=== PATIENT | female | born 1950 | race Caucasian/White ===

== ENCOUNTER 2024-02-19 01:30 | Outpatient (CLI) | payer MEDICARE, OTHER, SELFPAY | END 2024-02-19 01:31 | disposition home or self-care (01) | PROVIDERS: Visit Provider Family Medicine | DX: R06.09 Other forms of dyspnea (principal) | CPT/HCPCS: A0425; A0427 ==

== ENCOUNTER 2024-02-19 02:00 | Emergency (ER) | payer MEDICARE, OTHER, SELFPAY ==
[2024-02-19 02:04] VITALS: BP 144/61; PULSE 70; RESP 16; TEMP 36.4; O2SAT 94; BMI 36.6
--- NOTE | 2024-02-19 08:08 | ED_ITS ---
HPI - General Adult General Chief complaint: Unspecified Complaint, Adult Stated complaint: Swelling in throat Source: patient Mode of arrival: ambulatory Limitations: no limitations History of Present Illness HPI narrative: 73-year-old female comes in with her via EMS because of now resolved feeling of dry throat. Patient's reports that she has cognitive dysfunction, describes what sounds like vascular dementia. It sounds as though she is on Aricept and Namenda for her cognitive issues. She awoke overnight with some distress stating that she could not swallow. It sounds as though her mouth was very dry. She had a hard time remembering what to do and started getting very anxious. She was disoriented because they are visiting from [place] and she is staying in her son's home. She did not immediately recognized her surroundings and this seemed to cause her a little more distress. EMS was called. She reported feeling much better even by the time they arrived. She got some water and after drinking started to calm down and feel more settled. Her throat tightness result. There was never any real respiratory distress. She and her both admit that they may have ?jumped the gun? a little bit. There under tremendous stress right now. admits that he is struggling with the patient's cognitive dysfunction and memory loss as well as managing all of her medical appointments. They are here visiting their son who is unfortunately dying of cancer in his 40s. They have a 7-year-old grandson who is their only grandchild. Their son has fought a long hayes with his cancer but now has a life expectancy of all the a few weeks. This has been very distressing to them. They know that it is difficult on his son and the family for them to visit as well but they want nothing more than to be with their son for his last few weeks. The patient is not having fevers, there has been no dysuria. Her appetite has been good. There has been no vomiting or diarrhea. She and her both seem to have a mild upper respiratory type infection but no severe respiratory distress, productive cough, mouth ulcerations or other abnormality. There have been no really new medications. They follow with neurology regarding those cognitive medications. They have an upcoming neuropsych consult next Tuesday and several pending appointments for his as well. Past medical history is notable for diabetes, hypertension as well as this new or diagnosis of cognitive dysfunction. They were able to list all of her medications for me notable for venlafaxine, glipizide, lisinopril, a tore the statin, metoprolol several vitamin supplements Namenda Actos Aricept and 50 units of Lantus daily. They are nonsmokers, visiting from [place]. Has been seems to be very good at helping manage his 's cognitive impairment and also her medications. Per patient ROS is completely negative times 12 systems. Per , notable for the mild upper airway congestion as described above as well as the throat episode which resolved within a few minutes. Related Data Home Medications ?Medication ?Instructions ?Recorded ?Confirmed No Known Home Medications 02/19/24 02/19/24 Allergies Allergy/AdvReac Type Severity Reaction Status Date / Time No Known Drug Allergies Allergy Verified 02/19/24 04:19 [facility] Social History Do you use any of these nicotine containing products: None How often do you have a drink containing alcohol: never AUDIT-C Alcohol total score: 0 Non-prescribed substance use: denies use Exam Const: Vital Signs, click to edit/add: Vital Signs - 24 hr 02/19/24 02:04 Temperature 97.6 F Pulse Rate [Pulse Oximeter] 70 Respiratory Rate 16 Blood Pressure [Ri ght Upper Arm] 144/61 H Pulse Oximetry 94 Oxygen Delivery Me thod Room Air Documenting provider has reviewed patient's vital signs: yes Common normals: no apparent distress and alert General appearance: cooperative, comfortable and well kempt Other: Mild to moderate cognitive impairment but friendly with no agitation. HENMT: Common normals: normocephalic and oropharynx normal Head and scalp: normocephalic Face and sinus: normal facial exam Other: Mild clear mucus rhinorrhea with clear mucus postnasal drip. Slight blistery stomatitis, viral appearing. Eye: Common normals: conjunctivae normal General eye: normal appearance of both eyes Conjunctiva: conjunctiva(e) normal Neck & C-Spine: Common normals: full ROM and no lymphadenopathy Resp: Common normals: normal respiratory effort, no use of accessory muscles and clear to auscultation bilaterally Effort & inspection: able to speak in complete sentences Auscultation: clear to auscultation bilaterally Cardio: Common normals: regular rate, regular rhythm, S1 normal heart sound, S2 normal heart sound and no murmurs Rate: regular rate Rhythm: regular rhythm Heart sounds: S1 normal and S2 normal GI: Common normals: Normal to inspection, nondistended, normoactive bowel sounds present, soft to palpation, non-tender, no hepatosplenomegaly and no masses Palpation: soft and no hepatosplenomegaly Extremity: Common normals: normal to inspection and normal capillary refill Neuro: Common normals: moves all extremities and no focal motor deficits Sensorium/orientation: alert Speech: speech normal Motor exam: no movement abnormalities noted Psych: Appearance: well kempt Mood and affect: euthymic mood Insight: fa ir Judgement: fair Skin: Common normals: no rashes or lesions noted General skin exam: no ra shes or lesions noted Course Course ED Course: 73-year-old female with some mild chronic cognitive impairment presenting with mild URI and sensation of dry sticky throat that cause some distress overnight and resolved prior to presentation. I think that her presentation really is multifactorial. I think that her cognitive impairment and being in an unfamiliar environment cause some disorientation which did cause her some distress. Of course this cleared once she was redirected by her family. Drinking water helps with the dry throat. They are under tremendous distress due to their son's illness and the recent poor prognosis. There are no signs of hypoglycemia, vital sign instability or abnormalities that are dangerous on physical exam today. Discussed my rationale on not doing a more thorough workup, patient and are comfortable with this and are comfortable with discharging back home. We discussed alarm symptoms that would warrant ED Follow-up. Emotional support given. Vital Signs Vital signs: Initial Vital Signs Temperature 97.6 F 02/19/24 02:04 Temperature Source Temporal Artery Scan 02/19/24 02:04 Pulse Rate 70 02/19/24 02:04 Respiratory Rate 16 02/19/24 02:04 Blood Pressure 144/61 H 02/19/24 02:04 Blood Pressure Mean 88 02/19/24 02:04 Blood Pressure Position Supine 02/19/24 02:04 Pulse Oximetry 94 02/19/24 02:04 Oxygen Delivery Method Room Air 02/19/24 02:04 Vital Signs Temperature 97.6 F 02/19/24 02:04 Pulse Rate 70 02/19/24 02:04 Respiratory Rate 16 02/19/24 02:04 Blood Pressure 144/61 H 02/19/24 02:04 Pulse Oximetry 94 02/19/24 02:04 Oxygen Delivery Method Room Air 02/19/24 02:04 Temperature 97.6 F 02/19/24 02:04 Pulse Rate 70 02/19/24 02:04 Respiratory Rate 16 02/19/24 02:04 Blood Pressure 144/61 H 02/19/24 02:04 Pulse Oximetry 94 02/19/24 02:04 Oxygen Delivery Method Room Air 02/19/24 02:04 Discharge Plan Discharge Clinical Impression: Throat dryness Patient Disposition: Home w/ Parent or Adult Condition: Improved Additional Instructions: Discharge instruction on Kareen bowels: Our computer systems are currently down due to monthly maintenance until 4:30 a.m..? Hence, the unusual appearance of these discharge instructions. I agree with you that you do seem to be coming down with a mild respiratory virus but there are no signs of any severe respiratory distress.? Your lungs sound nice and clear.? I think that you had an episode of dryness in the throat that caused things to stick together which can be a very scary feeling.? Your memory medications make this even more likely to happen.? Your oxygen levels and vital signs all look very good.? I do not see any signs of an allergic reaction, swelling, ulcerations or other abnormalities in your throat.? Sometimes gastric reflux can be a factor but I do not hear any signs of that in your case today.? I am glad that your symptoms improved so quickly.? I do not see any signs of bacterial infection and do not think that treatment for your mild upper respiratory infection is necessary.? Keep taking your medications as prescribed.? Keep water at the bedside to drink in the middle of the night if you awaken with similar symptoms.? Symptoms should improve within about 2-3 minutes if throat dryness and anxiety caused these symptoms. I am also sorry the that you are going through so much right now.? As discussed, I would consider pushing back nonessential medical appointments for a few months until after the and things settle down for all of you. Please come back to the emergency department if there is any severe respiratory distress, high fevers or worsening of symptoms. Activity Level: No Restrictions Discharge Diet: Diabetic Prescriptions: No Action No Known Home Medications Follow Up/Referrals: Provider,Not a Local [Primary Care Provider] -
== END 2024-02-19 03:50 | disposition home or self-care (01) ==
LOC: ED 03:52
PROVIDERS: Emergency Provider Family Medicine
DX: U07.1 COVID-19 (principal); N39.0 Urinary tract infection, site not specified
CPT/HCPCS: 99283; 99284

== ENCOUNTER 2024-02-20 13:57 | Emergency (ER) | payer MEDICARE, OTHER, SELFPAY ==
[2024-02-20] VITALS (27 sets, daily range): BP systolic 93–133; BP diastolic 52–79; PULSE 56–68; RESP 18; TEMP 37.1; O2SAT 92–99; BMI 38.4
--- NOTE | 2024-02-20 14:17 | CRLHL7_ITS ---
For Patients: As a result of the Century Cures Act, medical imaging exams and procedure reports are released immediately into your electronic medical record. You may view this report before your referring provider. If you have questions, please contact your health care provider. INDICATION: Shortness of breath. TECHNIQUE: PA and lateral chest. FINDINGS: Lungs are clear. Normal heart size and pulmonary vascularity. No pleural effusion. No pneumothorax. Upper abdominal surgical clips. IMPRESSION: No acute chest findings. Dictated by Jose Edmond MD @ 02/22/2024 9:00:49 AM (Electronically Signed)
[2024-02-20] MEDS: 0.9 % SODIUM CHLORIDE 1000 ml 1,000 ML IV (14:40)
[2024-02-20 14:47] LABS: Basophils Absolute Auto 0.01 K/uL (0.00-0.30); Basophils Percent Auto 0.2 % (0.0-3.0); Eosinophils Absolute Auto 0.09 K/uL (0.00-0.50); Eosinophils Percent Auto 1.7 % (0.0-7.0); Hematocrit 36.9 % (33.0-51.0); Hemoglobin* 11.6 gm/dL (12.0-16.0); Lymphocytes Percent Auto 18.4 % (20-44); Mean Corpuscular HGB Conc 31 gm/dL (32-36); Mean Corpuscular Hemoglobin 29 pg (26-34); Mean Corpuscular Volume 92 fL (80-100); Monocytes Percent Auto 17.5 % (0.0-11.0); Neutrophils Absolute Auto 3.31 K/uL (1.7-7.0); Neutrophils Percent Auto 62.2 % (42.0-72.0); Platelet Count* 192 K/uL (140-440); RDW Coefficient of Variation % 15.3 % (11.5-15.5); White Blood Count* 5.32 K/uL (4.50-11.00)
[2024-02-20 14:49] LABS: Slide Review Reflex No
[2024-02-20 14:59] LABS: Chloride* 103 mmol/L (96-114); Sodium* 137 mmol/L (135-149)
[2024-02-20 15:00] LABS: Albumin* 3.8 g/dL (3.3-5.0)
[2024-02-20 15:02] LABS: Anion Gap 2 mEq/L (7-15); Blood Urea Nitrogen* 16 mg/dL (7-30); Carbon Dioxide* 32 mmol/L (20-32); Creatinine* 1.1 mg/dL (0.5-1.5); Estimated Glomerular Filt Rate 53 ml/min
[2024-02-20 15:03] LABS: Alkaline Phosphatase* 76 U/L (40-150); Aspartate Amino Transferase* 27 U/L (12-35); Bilirubin Direct* 0.2 mg/dL (0.0-0.5); Bilirubin Total* 1.5 mg/dL (0.1-1.5); Calcium* 8.7 mg/dL (8.4-10.6); Glucose* 61 mg/dL (60-115); Total Protein* 6.4 g/dL (6.0-8.3)
[2024-02-20 15:04] LABS: Alanine Aminotransferase* 14 U/L (4-35)
--- NOTE | 2024-02-20 15:05 | ED.GENADULT ---
HPI - General Adult General Chief complaint: Hypotension Stated complaint: Low BP Time Seen by Provider: 02/20/24 14:06 Source: patient and family Mode of arrival: ambulatory Limitations: no limitations History of Present Illness HPI narrative: 73-year-old female coming in today complaining of upper respiratory symptoms going on for a couple days. Patient [place] state and is going home tomorrow so she went to the urgent care to get her symptoms checked out earlier today and found her systolic blood pressure was 90. Because of this she was sent to the emergency department for evaluation. Upon arrival blood pressure is 127/79. Patient states she has had a runny nose and mild cough for couple days. She denies fever, changes in her appetite, chest pain or abdominal pain. She has a mild headache. She states that she has had urinary frequency for quite a while, unclear how long that means. She denies urgency or dysuria. She does have a history of urinary incontinence. She denies any diarrhea, no vomiting. Patient denies dizziness, feeling lightheaded, increased confusion, focal neurologic deficits, changes in her speech. has similar symptoms. Past medical history significant for diabetes, hypothyroidism, hypertension, hyperlipidemia, slow cognitive decline. Related Data Home Medications ?Medication ?Instructions ?Recorded ?Confirmed atorvastatin 40 mg tablet 40 mg PO DAILY 02/20/24 02/20/24 donepezil 10 mg tablet 10 mg PO QPM 02/20/24 02/20/24 glipizide 5 mg tablet 5 mg PO BID 02/20/24 02/20/24 insulin glargine 100 unit/mL (3 50 unit subcut DAILY 02/20/24 02/20/24 mL) subcutaneous pen (Lantus Solostar U-100 Insulin) levothyroxine 75 mcg tablet 75 mcg PO DAILY 02/20/24 02/20/24 lisinopril 20 mg tablet 10 - 20 mg PO BID 02/20/24 02/20/24 memantine 10 mg tablet 10 mg PO DAILY 02/20/24 02/20/24 metoprolol tartrate 25 mg tablet 25 mg PO DAILY 02/20/24 02/20/24 pioglitazone 30 mg tablet 30 mg PO DAILY 02/20/24 02/20/24 venlafaxine 37.5 mg tablet 37.5 mg PO DAILY 02/20/24 02/20/24 Previous Rx's ?Medication ?Instructions ?Recorded cephalexin 500 mg capsule 500 mg PO TID 5 days #15 caps 02/20/24 nirmatrelvir 300 mg (150 mg See Rx Instructions PO .COMPLEX 02/20/24 x2)-ritonavir 100 mg tablet,dose #30 ea pack (Paxlovid) Allergies Allergy/AdvReac Type Severity Reaction Status Date / Time No Known Drug Allergies Allergy Verified 02/20/24 14:07 Review of Systems Status of ROS: Reports: 10 or more systems reviewed and unremarkable except as noted in History and below PFSH [facility] Social History Do you use any of these nicotine containing products: None How often do you have a drink containing alcohol: never AUDIT-C Alcohol total score: 0 Non-prescribed substance use: denies use Exam Narrative: Exam Narrative: Well-nourished well-developed patient in no acute distress. Alert and oriented x3. Answers questions appropriately. Mood and affect are appropriate. No tangential or magical thinking noted. Patient speaks in full sentences without needing to catch her breath. Speech is not slurred or pressured. HEENT: Normocephalic atraumatic. Face symmetric. Pupils are equally round reactive to light. Extraocular muscles are intact. Conjunctivae are moist without any icterus noted. Moist mucous membranes. Posterior pharynx is normal. Neck is soft without any lymphadenopathy or thyromegaly. Cardiovascular: Heart is regular rate and rhythm S1 and S2 are present without any murmurs. Lungs: Clear to auscultation bilaterally no wheezes rhonchi or rales are appreciated. Patient takes deep breaths without any discomfort. Abdomen: Soft and nontender nondistended with normal bowel sounds. No guarding or rebound. Extremities: Bilateral lower extremities are without edema. Normal DP and PT pulses. Skin: Well perfused without any obvious rashes. Const: Vital Signs, click to edit/add: Vital Signs - 24 hr 02/20/24 14:07 02/20/24 14:17 02/20/24 14:34 Temperature 98.8 F Pulse Rate 58 L Pulse Rate [Pulse Oximeter] 58 L Respiratory Rate 18 Blood Pressure Blood Pressure [Ri ght Upper Arm] 127/79 Pulse Oximetry 95 94 96 Oxygen Delivery Me thod Room Air 02/20/24 14:36 02/20/24 14:49 02/20/24 15:00 Temperature Pulse Rate 56 L 60 Pulse Rate [Pulse Oximeter] Respiratory Rate Blood Pressure 109/53 L Blood Pressure [Ri ght Upper Arm] Pulse Oximetry 96 97 95 Oxygen Delivery Nd thod 02/20/24 15:01 02/20/24 15:02 02/20/24 15:15 Temperature Pulse Rate 62 61 62 Pulse Rate [Pulse Oximeter] Respiratory Rate Blood Pressure 93/58 L Blood Pressure [Ri ght Upper Arm] Pulse Oximetry 96 95 92 Oxygen Delivery Nd thod 02/20/24 15:20 02/20/24 15:30 02/20/24 15:40 Temperature Pulse Rate 68 Pulse Rate [Pulse Oximeter] Respiratory Rate Blood Pressure Blood Pressure [Ri ght Upper Arm] Pulse Oximetry 93 95 95 Oxygen Delivery Nd thod 02/20/24 15:45 02/20/24 16:00 02/20/24 16:02 Temperature Pulse Rate 65 60 62 Pulse Rate [Pulse Oximeter] Respiratory Rate Blood Pressure 133/59 L Blood Pressure [Ri ght Upper Arm] Pulse Oximetry 95 97 97 Oxygen Delivery Nd thod 02/20/24 16:15 02/20/24 16:25 02/20/24 16:30 Temperature Pulse Rate 62 63 Pulse Rate [Pulse Oximeter] Respiratory Rate Blood Pressure Blood Pressure [Ri ght Upper Arm] Pulse Oximetry 97 97 94 Oxygen Delivery Nd thod 02/20/24 16:32 02/20/24 16:40 02/20/24 16:45 Temperature Pulse Rate 62 65 Pulse Rate [Pulse Oximeter] Respiratory Rate Blood Pressure 114/52 L Blood Pressure [Ri ght Upper Arm] Pulse Oximetry 99 98 97 Oxygen Delivery Nd thod 02/20/24 17:00 02/20/24 17:02 02/20/24 17:06 Temperature Pulse Rate 62 66 Pulse Rate [Pulse Oximeter] Respiratory Rate Blood Pressure 99/63 Blood Pressure [Ri ght Upper Arm] 99/63 Pulse Oximetry 98 98 Oxygen Delivery Nd thod 02/20/24 17:15 Temperature Pulse Rate 62 Pulse Rate [Pulse Oximeter] Respiratory Rate Blood Pressure Blood Pressure [Ri ght Upper Arm] Pulse Oximetry 96 Oxygen Delivery Me thod Course Course ED Course: IV established and patient given a L of normal saline. EKG, read by me, shows sinus bradycardia with a pulse of 57, incomplete right bundle-branch block. CBC is unremarkable. Chemistries are unremarkable. LFTs are unremarkable. Normal troponin. Normal lactate. Normal TSH. UA does show evidence of infection. COVID positive. Vital Signs Vital signs: Initial Vital Signs Temperature 98.8 F 02/20/24 14:07 Temperature Source Temporal Artery Scan 02/20/24 14:07 Pulse Rate 58 L 02/20/24 14:07 Respiratory Rate 18 02/20/24 14:07 Blood Pressure 127/79 02/20/24 14:07 Blood Pressure Mean 95 02/20/24 14:07 Blood Pressure Position Semi-Fowlers 02/20/24 14:07 Pulse Oximetry 95 02/20/24 14:07 Oxygen Delivery Method Room Air 02/20/24 14:07 Vital Signs Temperature 98.8 F 02/20/24 14:07 Pulse Rate 58 L 02/20/24 14:07 Respiratory Rate 18 02/20/24 14:07 Blood Pressure 127/79 02/20/24 14:07 Pulse Oximetry 95 02/20/24 14:07 Oxygen Delivery Method Room Air 02/20/24 14:07 Temperature 98.8 F 02/20/24 14:07 Pulse Rate 62 02/20/24 17:15 Respiratory Rate 18 02/20/24 14:07 Blood Pressure 99/63 02/20/24 17:06 Pulse Oximetry 96 02/20/24 17:15 Oxygen Delivery Method Room Air 02/20/24 14:07 Medications Administered Medications: Discontinued Medications Generic Name Dose Route Start Last Admin Trade Name Freq PRN Reason Stop Dose Admin Sodium Chloride 1,000 mls @ 1,000 mls/hr 02/20/24 14:30 02/20/24 16:19 0.9 % Sodium Chloride 1000 Ml IV 02/20/24 15:29 Infused .Q1H CALVIN Infusion Medical Decision Making MDM Narrative Medical decision making narrative: 73-year-old female with COVID-19 infection causing her upper respiratory symptoms. She also has evidence and symptoms of a UTI. Will put the patient on Paxlovid and Keflex for 5 days. Given her low blood pressure at this time we will Hold lisinopril. Without an elevated white count, tachycardia, elevated lactate-this patient does not fit criteria for SIRS or sepsis. Urine does appear dark so I do believe that dehydration is likely playing a part in her low blood pressure. Recommend she increase her fluid intake over the next few days and follow up with primary care before the week is over. Lab Data Lab results reviewed: Yes I reviewed the patient's lab results Labs: Lab Results 02/20/24 02/20/24 02/20/24 Range/Units 14:21 14:36 15:16 WBC 5.32 (4.50-11.00) K/uL RBC 4.00 (4.00-5.20) m/uL Hgb 11.6 L (12.0-16.0) gm/dL Hct 36.9 (33.0-51.0) % MCV 92 (80-100) fL MCH 29 (26-34) pg MCHC 31 L (32-36) gm/dL RDW Coeff of Kita 15.3 (11.5-15.5) % Plt Count 192 (140-440) K/uL Neut % (Auto) 62.2 (42.0-72.0) % Lymph % (Auto) 18.4 L (20-44) % [place] % (Auto) 17.5 H (0.0-11.0) % Eos % (Auto) 1.7 (0.0-7.0) % Baso % (Auto) 0.2 (0.0-3.0) % Neut # (Auto) 3.31 (1.7-7.0) K/uL Lymph # (Auto) 1.00 (0.90-2.90) K/uL [place] # (Auto) 0.90 (0.00-0.90) K/UL Eos # (Auto) 0.09 (0.00-0.50) K/uL Baso # (Auto) 0.01 (0.00-0.30) K/uL Abs Immat Gran (auto) 0.00 (0.00-0.30) K/uL Imm/Tot Granulo (auto) 0.0 % Sodium 137 (135-149) mmol/L Potassium 4.0 (3.6-5.1) mmol/L Chloride 103 (96-114) mmol/L Carbon Dioxide 32 (20-32) mmol/L Anion Gap 2 L (7-15) mEq/L BUN 16 (7-30) mg/dL Creatinine 1.1 (0.5-1.5) mg/dL Estimated Creat Clear 41.60 Estimated GFR 53 ml/min Glucose 61 (60-115) mg/dL Lactate (0.5-1.9) mmol/L Calcium 8.7 (8.4-10.6) mg/dL Total Bilirubin 1.5 (0.1-1.5) mg/dL Direct Bilirubin 0.2 (0.0-0.5) mg/dL AST 27 (12-35) U/L ALT 14 (4-35) U/L Alkaline Phosphatase 76 (40-150) U/L Troponin I < 0.01 L (0.01-0.04) ng/mL Total Protein 6.4 (6.0-8.3) g/dL Albumin 3.8 (3.3-5.0) g/dL TSH 2.960 (0.270-4.20) uIU/mL Urine Color (Yellow) Urine Appearance (Clear) Urine pH (5.0-8.5) Ur Specific [place] (1.000-1.030) Urine Protein (Negative) Urine Glucose (UA) (Negative) Urine Ketones (Negative) Urine Blood (Negative) Urine Nitrite (Negative) Urine Bilirubin (Negative) Urine Urobilinogen (0.2-1.0) Ur Leukocyte Esterase (Negative) Urine RBC (0-2) Urine WBC (0-5) Urine WBC Clumps (None) Ur Squamous Epith Cells (None-Few) Urine Bacteria (None) SARS-CoV-2 (PCR) POSITIVE SARS-CoV-2 A (Negative) Influenza Type A (PCR) Negative PCR FLU A (Negative) Influenza Type B (PCR) Negative PCR FLU B (Negative) RSV (PCR) Negative PCR RSV (Negative) Lab Acknowledgement New Spec Needed 02/20/24 02/20/24 Range/Units 15:34 16:23 WBC (4.50-11.00) K/uL RBC (4.00-5.20) m/uL Hgb (12.0-16.0) gm/dL Hct (33.0-51.0) % MCV (80-100) fL MCH (26-34) pg MCHC (32-36) gm/dL RDW Coeff of [place]ita (11.5-15.5) % Plt Count (140-440) K/uL Neut % (Auto) (42.0-72.0) % Lymph % (Auto) (20-44) % [place] % (Auto) (0.0-11.0) % Eos % (Auto) (0.0-7.0) % Baso % (Auto) (0.0-3.0) % Neut # (Auto) (1.7-7.0) K/uL Lymph # (Auto) (0.90-2.90) K/uL [place] # (Auto) (0.00-0.90) K/UL Eos # (Auto) (0.00-0.50) K/uL Baso # (Auto) (0.00-0.30) K/uL Abs Immat Gran (auto) (0.00-0.30) K/uL Imm/Tot Granulo (auto) % Sodium (135-149) mmol/L Potassium (3.6-5.1) mmol/L Chloride (96-114) mmol/L Carbon Dioxide (20-32) mmol/L Anion Gap (7-15) mEq/L BUN (7-30) mg/dL Creatinine (0.5-1.5) mg/dL Estimated Creat Clear Estimated GFR ml/min Glucose (60-115) mg/dL Lactate 0.5 (0.5-1.9) mmol/L Calcium (8.4-10.6) mg/dL Total Bilirubin (0.1-1.5) mg/dL Direct Bilirubin (0.0-0.5) mg/dL AST (12-35) U/L ALT (4-35) U/L Alkaline Phosphatase (40-150) U/L Troponin I (0.01-0.04) ng/mL Total Protein (6.0-8.3) g/dL Albumin (3.3-5.0) g/dL TSH (0.270-4.20) uIU/mL Urine Color [place] A (Yellow) Urine Appearance Cloudy A (Clear) Urine pH 5.5 (5.0-8.5) Ur Specific [place] 1.025 (1.000-1.030) Urine Protein 1+ A (Negative) Urine Glucose (UA) Trace A (Negative) Urine Ketones Negative (Negative) Urine Blood 1+ A (Negative) Urine Nitrite Negative (Negative) Urine Bilirubin Negative (Negative) Urine Urobilinogen 0.2 (0.2-1.0) Ur Leukocyte Esterase 1+ A (Negative) Urine RBC 10-25 A (0-2) Urine WBC 10-25 A (0-5) Urine WBC Clumps None (None) Ur Squamous Epith Cells Few (None-Few) Urine Bacteria None (None) SARS-CoV-2 (PCR) (Negative) Influenza Type A (PCR) (Negative) Influenza Type B (PCR) (Negative) RSV (PCR) (Negative) Lab Acknowledgement Discharge Plan Discharge Clinical Impression: COVID-19, UTI (urinary tract infection) Patient Disposition: Home, Self-Care Condition: Stable Additional Instructions: Hold atorvastatin until you have completed the Paxlovid course. Take all antibiotics as prescribed for a bladder infection. Increase water intake for the next week. Hold your lisinopril for a couple of days and check your blood pressures once or twice per day. Follow-up with your primary care provider in 7-10 days. Prescriptions: New Paxlovid 300 mg (150 mg x 2)-100 mg tablets,dose pack See Rx Instructions .ROUTE .COMPLEX Qty: 30 0RF Rx Instructions: take TWO 150 mg tablets of nirmatrelvir with ONE 100 mg tablet of ritonavir twice daily for 5 days cephalexin 500 mg capsule 500 mg PO TID 5 Days Qty: 15 0RF No Action atorvastatin 40 mg tablet 40 mg PO DAILY glipizide 5 mg tablet 5 mg PO BID insulin glargine [Lantus Solostar U-100 Insulin] 100 unit/mL (3 mL) insulin pen 50 unit subcut DAILY lisinopril 20 mg tablet 10 - 20 mg PO BID Rx Instructions: 1 tablet in AM and 1/2 tablet in PM levothyroxine 75 mcg tablet 75 mcg PO DAILY donepezil 10 mg tablet 10 mg PO QPM venlafaxine 37.5 mg tablet 37.5 mg PO DAILY pioglitazone 30 mg tablet 30 mg PO DAILY memantine 10 mg tablet 10 mg PO DAILY metoprolol tartrate 25 mg tablet 25 mg PO DAILY Follow Up/Referrals: Provider,Not a Local [Primary Care Provider] - Stand Alone Forms: [employer] [facility] Info Instructions
[2024-02-20 15:15] LABS: Troponin I* < 0.01 ng/mL (0.01-0.04)
[2024-02-20 15:25] LABS: PCR FLU A Negative PCR FLU A (Negative); PCR FLU B Negative PCR FLU B (Negative); PCR RSV Negative PCR RSV (Negative); SARS PCR* POSITIVE SARS-CoV-2 (Negative)
[2024-02-20 15:35] LABS: Lab Add On Test New Spec Needed
[2024-02-20 16:02] LABS: Lactate* 0.5 mmol/L (0.5-1.9)
[2024-02-20 16:30] LABS: Appearance Urine Cloudy (Clear); Bilirubin Urine Negative (Negative); Blood Urine 1+ (Negative); Color Urine Amber (Yellow); Glucose Urine Trace (Negative); Ketones Urine Negative (Negative); Leukocyte Esterase Urine 1+ (Negative); Nitrite Urine Negative (Negative); Protein Urine 1+ (Negative); Specific Gravity Urine 1.025 (1.000-1.030); Urobilinogen Urine 0.2 (0.2-1.0); pH Urine 5.5 (5.0-8.5)
[2024-02-20 16:41] LABS: Squamous Epithelial Cell Urine Few (None-Few)
== END 2024-02-20 17:52 | disposition home or self-care (01) ==
PROVIDERS: Emergency Provider Family Medicine
DX: U07.1 COVID-19 (principal); N39.0 Urinary tract infection, site not specified
CPT/HCPCS: 36415; 71046; 80048; 80076; 81001; 83605; 84443; 84484; 85025; 87086; 87631; 93005; 94761; 96360; 96361; 99284; 99285; J7030